=== PATIENT | female | born 1965 | race Caucasian/White ===

== ENCOUNTER 2023-07-24 16:58 | Outpatient (RCR) | payer BC, SELFPAY | END 2023-07-24 23:59 | disposition home or self-care (01) | LOC: ROT 16:58 | PROVIDERS: ATTENDING PHYSICIAN Orthopaedic Surgery Hand Surgery; FAMILY PHYSICIAN Family Medicine | DX: M18.11 Unilateral primary osteoarthritis of first carpometacarpal joint, right hand (principal) | CPT/HCPCS: 97010; 97110; 97140; 97166; 97535 ==

== ENCOUNTER 2023-09-03 09:04 | Outpatient (RCR) | payer BC, SELFPAY | END 2023-09-03 23:59 | disposition home or self-care (01) | LOC: ROT 09:04 | PROVIDERS: ATTENDING PHYSICIAN Orthopaedic Surgery Hand Surgery; FAMILY PHYSICIAN Family Medicine | DX: Z47.89 Encounter for other orthopedic aftercare (principal); M18.11 Unilateral primary osteoarthritis of first carpometacarpal joint, right hand; Z73.6 Limitation of activities due to disability | CPT/HCPCS: 97010; 97018; 97022; 97110; 97140 ==

== ENCOUNTER 2023-09-09 01:27 | Emergency (ER) | payer BC, SELFPAY ==
[2023-09-09] VITALS (8 sets, daily range): BP systolic 93–120; BP diastolic 66–80; PULSE 69–84
[2023-09-09 01:47] LABS: Glucose - Point of Care 124 mg/dl (70-99)
[2023-09-09] MEDS: NSS 1000 IV (02:51)
--- NOTE | 2023-09-09 02:51 | ED.GENMED ---
Addendum entered and electronically signed by PHYLLIS Booker 09/12/23 08:40:
Patient's urine is positive for E. coli I reviewed all sensitivities will send in Keflex 5 mg twice a day patient's pharmacy I spoke with patient home she is feeling well denies any UTI symptoms no nausea vomiting fever pain. Discussed close
outpatient follow-up family doctor
Original Note:
History of Present Illness
General
Chief Complaint: Dizziness
Source: patient
Exam Limitations: none
Time Seen by Provider: 09/09/23 02:26
Travel History
Have you had any contact with someone who has COVID-19?: No
Do you have any symptoms of coronavirus? Fever > 100 degrees, chills, cough, shortness of breath, sore throat, loss of taste or smell, muscle aches, or headache?: No
History of Present Illness
History of Present Illness:
This is a 58 year old female that comes in with c/o dizziness. Staes that yesterday at 3am she awoke and felt woozy and disoriented. States that when she was laying down she felt dizzy like the room was spinniing. States that she had stuffed to do
on Sunday so she pushed through. States that she was at [employer] and she bent over and when she stood back up she was dizzy. States that she felt like today her coordination was off and she kept dropping things. States that she also felt like she had
slurred speech but her felt that this was normal. States that at around 2pm on Sunday she felt better. Then at 3:30pm she felt like her eyes were pink. States that she has had fowl smelling for the past week. States that she also has a
headache on the right sided. Denies any fever, chills, chest pain, SOB, abd pain, nausea, vomiting, diarrhea, urinary burning.
Past History
Past History
ED Past Medical History: Asthma, GERD, Hypercholesterolemia, NIDDM, Psychiatric (Anxiety, Depression) and Other (Bowel polyps pre CA, Hiatal hernia, Osteoarthritis. Migraines, PNA, Sleep apnea, Narrow angle Glaucoma, Anemia, Lyme disease, Vertigo)
ED Past Surgical History: Cholecystectomy, , Gynecological (Tubel), Orthopedic (Bunionectomy, Right and left thumb surgery), Tonsilectomy and Urological (Bladder sling)
Social History
Tobacco: Non-smoker
Alcohol: Occasional
Personal:
Living: with family
Review of Systems
Review of Systems
All Other Systems: ROS reviewed and negative except as documented in HPI and ROS
Constitutional: Reports no symptoms; Denies fever or chills
EENT: Reports no symptoms
Respiratory: Reports no symptoms; Denies cough or trouble breathing
Cardiac: Reports no symptoms; Denies chest pain
ABD/GI: Reports no symptoms; Denies abdominal pain, nausea, vomiting or diarrhea
: Reports other (Fowl smelling urine); Denies dysuria, frequency or urgency
Musculoskeletal: Reports no symptoms
Skin: Reports no symptoms
Neurological: Reports dizzy and headache
Psychiatric: Reports no symptoms
Phy Exam
General Physical Exam
General Presentation: well appearing (Upon entering the room patient was walking out of the bathroom. Stable on her feet) and no apparent distress
General age: appears stated age
General Skin: warm and dry
General Habitus: normal
General Mental: alert
General Hydration: appears well hydrated
ENT Exam
ENT Exam: TM's normal, pharynx normal and neck supple
Eye Exam
Eye Exam: EOMI
Cardiovascular Exam
Cardiovascular Exam: regular rate/rhythm, no edema, no murmur and normal peripheral pulses
Pulmonary Exam
Pulmonary Exam: lungs clear, no respiratory distress, no rales, chest non tender, no crackles, no rhonchi, no wheezing and no cough
Gastrointestinal Exam
Gastrointestinal Exam: normal bowel sounds, non tender, soft, no organomegaly, no pulsatile mass and non distended
Musculoskeletal Exam
Musculoskeletal Exam: full ROM and no edema
Skin Exam
Skin Exam: normal color, warm/dry, no rash and no petechia
Psychiatric Exam
Psychiatric Exam: normal mood/affect
Course
Orders/Labs/Results
Orders:
Orders
09/09/23 02:03
EKG [Electrocardiogram (*1)] Urgent
Reason for Study: Vertigo / Dizzy
09/09/23 02:04
EKG- Treatment ONCE
09/09/23 02:23
CBC/With Diff [Complete Blood Count/With Diff] Urgent
CMP [Comprehensive Metabolic Panel] Urgent
09/09/23 02:31
Urinalysis Reflex To Culture Urgent
Date Specimen was Collected: 09/09/23
Time Specimen was Collected: 02:30
Urine Microscopic Reflex Cult Urgent
Urine Culture Urgent
PROSPER Source: U
Specimen Description:
Date Specimen was Collected: 09/09/23
Time Specimen was Collected: 02:30
09/09/23 02:48
CT Head W/o Iv Contrast Urgent
Comment:
Reason For Exam: Dizziness, headache
0.9% Sodium Chloride 1000 ml [Nss] 1,000 ml IV BOLUS
Abnormal Lab Results
09/09/23 09/09/23 09/09/23
01:45 02:23 02:31
RBC 3.75 L 10^6/uL
(4.20-5.40)
Hgb 11.9 L g/dL
(12.0-16.0)
Hct 31.9 L %
(37.0-47.0)
MCH 31.7 H pg
(27.0-31.0)
MCHC 37.3 H g/dL
(33.0-37.0)
Absolute Lymphs (auto) 3.7 H 10^3/uL
(1.2-3.4)
Absolute Monos (auto) 0.7 H 10^3/uL
(0.1-0.6)
Neutrophils % 38.8 L %
(42.2-75.2)
BUN 22 H mg/dl
(7-17)
Glucose 127 H mg/dl
(70-99)
Leukocyte Esterase Rfl 2+ A
(Negative)
Urine Bacteria (Reflex) Moderate A
(Negative)
POC Glucose 124 H mg/dl
(70-99)
09/09/23 02:23
09/09/23 02:23
H/H slightly low. dehydration. glucose nonfasting. Urine negative for infection. Urine culture is pending.
Vital Signs
Initial and Last Documented VS:
Initial Vital Signs
Temp Pulse Resp BP Pulse Ox
97.9 F 80 18 120/80 98
09/09/23 01:29 09/09/23 01:29 09/09/23 01:29 09/09/23 01:29 09/09/23 01:29
Last Documented Vital Signs
Temp Pulse Resp BP Pulse Ox
97.9 F 75 19 116/66 98
09/09/23 01:29 09/09/23 01:45 09/09/23 01:45 09/09/23 01:44 09/09/23 01:45
MDM/Problems Addressed
Differential Diagnosis Includes:
Vertigo, Dehydration. UTI
MDM/Problems Addressed:
This is a 58 year old female that comes in with c/o dizziness and a headache. States thats he got up yesterday at 3am and felt woozy. States that she had thing to do on Sunday so she pushed through. States that she was dizzy when she was at [employer]
and she was dropping thing during the day. States that her urine has had a fowl smell all week and then by 2pm she felt better. States that she also had a right sided headache.
Will check labs. Urine, CT head, give IV fluids.
Back into see patient. Explained that her blood work shows dehdyration. Her CT of the head is normal. Her urine is negative for infection but a culture is pending and if this would be positive patient would be called. Patient state that she just
gets nervous as her Mother had a stroke and her dad had TIA's. Patient to follow up with the family doctor. Patient was able to walk around the nursing station without any difficulty. Will discharge home.
Chronic conditions affecting care:
Vertigo,
Acute Exacerbation and/or Progression of Chronic Illness:
Vertigo
*Radiology
Radiology exam reviewed: radiology read reviewed (CT head- [place]- No hemorrhage or other acute intracranial abnormality. )
*Pulse Oximetry
Patient hypoxic: no
*EKG
Interpreted by ED Provider?: Yes
Heart Rate: 68
Rate: normal
Rhythm: sinus
[place]: left axis deviation
Interval: normal interval
QRS Pattern: low voltage
Ischemia: T-wave inversion (V1, V3, )
*Critical Care Note
Total Time (30-74mins, 75-104mins- exclusive of procedures): Not Applicable
ED Attending Note
-
Portions of this chart may have been created with voice recognition software.� Occasional wrong word or��sound alike� substitutions may have occurred due to the inherent limitations of voice recognition software.
Discharge Plan
Departure
Patient Disposition: Home (Routine Discharge)
Date of Disposition: 09/09/23
Time of Disposition: 03:41
Patient with high blood pressure during this ER visit?: No
Condition: Good
Covid-19: Not Applicable
Discharge Problem:
Dizziness, Dehydration
Instructions: Dehydration, Adult (DC), Dizziness
Prescriptions:
No Action
citalopram 20 mg Tablet
20 mg PO DAILY
rosuvastatin 5 mg Tablet
5 mg PO DAILY
glimepiride 1 mg Tablet
1 mg PO DAILY
nabumetone 750 mg Tablet
750 mg PO BID
cholecalciferol (vitamin D3) [Vitamin D3] 25 mcg (1,000 unit) Capsule
25 mcg PO DAILY
magnesium 200 mg Tablet
200 mg PO DAILY
Natural Tears (PF) 0.1-0.3 % Dropperette
1 drp OPHTHALMIC (EYE) PRN PRN (Reason: Dry Eyes)
Mounjaro 2.5 mg/0.5 mL Pen Injector
2.5 mg SC MO
Referrals:
Alfred Call MD [Family Provider] - Follow up in 2-3 days
Activity Restrictions/Additional Instructions:
As discussed, your CT of the head is normal and your blood work shows that you are dehydrated. Please increase your water intake to 8-8oz glasses daily. Follow up with the family doctor for recheck. There is a urine culture pending. If this would
come back positive you will be called and start on an antibiotics. IF YOU HAVE INCREASED DIZZINESS, OR YOU HAVE ANY OTHER CONCERNS PLEASE RETURN TO THE EMERGENCY ROOM.
Interventions
Interventions:
*Risk Screen - Suicide Last Done: 09/09/23 01:29
*Neglect/Abuse Screening Last Done: 09/09/23 01:29
ED- Neurological Assessment Last Done: 09/09/23 01:51
[2023-09-09 02:53] LABS: Urine Albumin Negative (Neg - Trace); Urine Bilirubin Negative (Negative); Urine Character Clear (Clear); Urine Color Yellow; Urine Glucose Negative (Negative); Urine Ketone Negative (Negative); Urine Leukocyte 2+ (Negative); Urine Nitrite Negative (Negative); Urine Occult Blood Negative (Negative); Urine Urobilinogen Negative (Neg - 1+)
[2023-09-09 02:56] LABS: % Basophils 0.8 % (0-2); % Eosinophils 3.5 % (0-6); % Immature Granulocytes 0.3 % (0-0.5); % Lymphocytes 47.7 % (20.5-51.1); % Monocytes 8.9 % (1.7-9.3); % Neutrophils 38.8 % (42.2-75.2); Absolute Basophils 0.1 10^3/uL (0-0.2); Absolute Eosinophils 0.3 10^3/uL (0-0.7); Absolute Lymphocytes 3.7 10^3/uL (1.2-3.4); Absolute Monocytes 0.7 10^3/uL (0.1-0.6); Hematocrit 31.9 % (37.0-47.0); Hemoglobin 11.9 g/dL (12.0-16.0); Mean Corp Hgb Conc. 37.3 g/dL (33.0-37.0); Mean Corpuscular Hgb 31.7 pg (27.0-31.0); Mean Corpuscular Volume 85.1 fL (81.0-99.0); Mean Platelet Volume 9.4 fL (7.4-10.4); Nucleated Red Blood Cells % 0 %; Platelet Count 140 10^3/uL (130-400); Red Blood Cell Count 3.75 10^6/uL (4.20-5.40); Red Cell Dist. Width 11.9 % (11.5-14.5); White Blood Cell Count 7.8 10^3/uL (4.8-10.8)
[2023-09-09 03:08] LABS: ALT (SGPT) 30 U/L (0-35); AST (SGOT) 26 U/L (14-36); Albumin 4.2 g/dl (3.5-5.0); Alkaline Phosphatase 66 U/L (38-126); Blood Urea Nitrogen 22 mg/dl (7-17); Calcium 9.5 mg/dl (8.4-10.2); Carbon Dioxide 22 mmol/L (22-30); Chloride 105 mmol/L (98-107); Glucose 127 mg/dl (70-99); Potassium 3.5 mmol/L (3.5-5.1); Sodium 140 mmol/L (135-145); Total Bilirubin 0.5 mg/dl (0.2-1.3); Total Protein 6.7 g/dl (6.3-8.2); eGFR > 60.00
[2023-09-09 03:09] LABS: Urine Bacteria Moderate (Negative); Urine Red Blood Cell 0-2 /HPF (0-2)
== END 2023-09-09 04:02 | disposition home or self-care (01) ==
LOC: EMR 01:27
PROVIDERS: Clinical Nurse Specialist Family Health; EMERGENCY PHYSICIAN Emergency Medicine; FAMILY PHYSICIAN Family Medicine
DX: R42 Dizziness and giddiness (principal); E86.0 Dehydration; R47.81 Slurred speech; J45.909 Unspecified asthma, uncomplicated; K21.9 Gastro-esophageal reflux disease without esophagitis; E78.00 Pure hypercholesterolemia, unspecified; E11.9 Type 2 diabetes mellitus without complications; F41.8 Other specified anxiety disorders; G47.30 Sleep apnea, unspecified; M19.90 Unspecified osteoarthritis, unspecified site; Z90.49 Acquired absence of other specified parts of digestive tract
CPT/HCPCS: 99284; 70450; 80053; 81003; 81015; 82962; 85025; 87077; 87086; 87186; 93005

== ENCOUNTER 2023-09-25 17:17 | Outpatient (RCR) | payer BC, SELFPAY | END 2023-09-25 23:59 | disposition home or self-care (01) | LOC: ROT 17:17 | PROVIDERS: ATTENDING PHYSICIAN Orthopaedic Surgery Hand Surgery; FAMILY PHYSICIAN Family Medicine | DX: Z47.89 Encounter for other orthopedic aftercare (principal); M18.11 Unilateral primary osteoarthritis of first carpometacarpal joint, right hand; Z73.6 Limitation of activities due to disability | CPT/HCPCS: 97018; 97110; 97140 ==

== ENCOUNTER → 2023-10-03 10:05 | Outpatient (REF) | payer BC, SELFPAY ==
[2023-10-03 11:28] LABS: ALT (SGPT) 39 U/L (0-35); AST (SGOT) 29 U/L (14-36); Albumin 4.8 g/dl (3.5-5.0); Alkaline Phosphatase 74 U/L (38-126); Blood Urea Nitrogen 19 mg/dl (7-17); Calcium 10.2 mg/dl (8.4-10.2); Carbon Dioxide 22 mmol/L (22-30); Chloride 106 mmol/L (98-107); Glucose 162 mg/dl (70-99); HDL Cholesterol 49 mg/dl; LDL Cholesterol, Calculated 60 mg/dl; Potassium 4.5 mmol/L (3.5-5.1); Sodium 140 mmol/L (135-145); Total Bilirubin 0.8 mg/dl (0.2-1.3); Total Cholesterol 160 mg/dl (50-199); Total Protein 7.7 g/dl (6.3-8.2); Triglyceride 256 mg/dl (10-149); Very Low Density Lipoprotein 51 mg/dl (0-30); eGFR > 60.00
[2023-10-03 12:16] LABS: Glycohemoglobin (HgbA1c) 6.7 % (4.0-5.6)
== END ==
LOC: REG 10:05
PROVIDERS: ATTENDING PHYSICIAN Internal Medicine Endocrinology, Diabetes & Metabolism; FAMILY PHYSICIAN Family Medicine
DX: E11.9 Type 2 diabetes mellitus without complications (principal)
CPT/HCPCS: 36415; 80053; 80061; 83036

== ENCOUNTER → 2023-11-06 19:59 | Outpatient (REF) | payer BC, SELFPAY | LOC: WDC 19:59 | PROVIDERS: ATTENDING PHYSICIAN Family Medicine | DX: Z12.31 Encounter for screening mammogram for malignant neoplasm of breast (principal) | CPT/HCPCS: 77063; 77067 ==

== ENCOUNTER 2023-11-19 09:10 | Outpatient (RCR) | payer BC, SELFPAY | END 2023-11-19 23:59 | disposition home or self-care (01) | LOC: ROT 09:10 | PROVIDERS: ATTENDING PHYSICIAN Orthopaedic Surgery Hand Surgery; FAMILY PHYSICIAN Family Medicine | DX: M18.11 Unilateral primary osteoarthritis of first carpometacarpal joint, right hand (principal); Z73.6 Limitation of activities due to disability | CPT/HCPCS: 97018; 97110; 97140; 97535 ==

== ENCOUNTER → 2023-11-19 10:11 | Outpatient (REF) | payer BC, SELFPAY ==
[2023-11-19 11:47] LABS: % Eosinophils 3.6 % (0-6); % Immature Granulocytes 0.4 % (0-0.5); % Lymphocytes 41.3 % (20.5-51.1); % Monocytes 8.3 % (1.7-9.3); % Neutrophils 45.4 % (42.2-75.2); Absolute Basophils 0.1 10^3/uL (0-0.2); Absolute Eosinophils 0.3 10^3/uL (0-0.7); Absolute Lymphocytes 2.9 10^3/uL (1.2-3.4); Absolute Monocytes 0.6 10^3/uL (0.1-0.6); Absolute Neutrophils 3.1 10^3/uL (1.4-6.5); Hematocrit 36.9 % (37.0-47.0); Hemoglobin 12.7 g/dL (12.0-16.0); Mean Corp Hgb Conc. 34.4 g/dL (33.0-37.0); Mean Corpuscular Hgb 31.1 pg (27.0-31.0); Mean Corpuscular Volume 90.2 fL (81.0-99.0); Mean Platelet Volume 9.8 fL (7.4-10.4); Nucleated Red Blood Cells % 0 %; Platelet Count 148 10^3/uL (130-400); Red Blood Cell Count 4.09 10^6/uL (4.20-5.40); Red Cell Dist. Width 11.7 % (11.5-14.5); White Blood Cell Count 6.9 10^3/uL (4.8-10.8)
[2023-11-19 12:34] LABS: Erythrocyte Sed Rate 12 mm/hour (0-20)
[2023-11-19 12:57] LABS: C-Reactive Protein < 5.00 mg/L (0.0-10.00)
[2023-11-19 13:13] LABS: Creatine Phosphokinase 81 U/L (30-135)
[2023-11-19 13:20] LABS: Free T4 1.29 ng/dl (0.78-2.19); Vitamin D, 25-OH*** 52.6 ng/mL (30-80)
[2023-11-19 13:34] LABS: TSH 2.13 uIU/ml (0.47-4.68)
[2023-11-19 13:53] LABS: Vitamin B12 541 pg/ml (239-931)
[2023-11-22 02:44] LABS: ANA, IgG Reflex to HEp-2 None Detected (None Detected)
[2023-11-22 02:51] LABS: CCP Antibody IgG/IgA 11 Units (0-19)
== END ==
LOC: REG 10:11
PROVIDERS: ATTENDING PHYSICIAN Internal Medicine Rheumatology; FAMILY PHYSICIAN Family Medicine
DX: E07.9 Disorder of thyroid, unspecified (principal); E53.8 Deficiency of other specified B group vitamins; E55.9 Vitamin D deficiency, unspecified; M25.50 Pain in unspecified joint
CPT/HCPCS: 36415; 73030; 73100; 73130; 73523; 73600; 82306; 82550; 82607; 84439; 84443; 85025; 85652; 86038; 86140; 86200; 86430; 86617

== ENCOUNTER → 2024-01-01 11:33 | Outpatient (REF) | payer BC, SELFPAY | LOC: RAD 11:33 | PROVIDERS: ATTENDING PHYSICIAN Family Medicine | DX: Z86.69 Personal history of other diseases of the nervous system and sense organs (principal); G45.9 Transient cerebral ischemic attack, unspecified | CPT/HCPCS: 93880 ==

== ENCOUNTER → 2024-01-02 09:46 | Outpatient (REF) | payer BC, SELFPAY | LOC: PAVMRI 09:46 | PROVIDERS: ATTENDING PHYSICIAN Family Medicine | DX: Z86.69 Personal history of other diseases of the nervous system and sense organs (principal); G45.9 Transient cerebral ischemic attack, unspecified | CPT/HCPCS: 70553; A9575 ==

== ENCOUNTER 2024-02-16 16:05 | Emergency (ER) | payer OTHER, SELFPAY ==
[2024-02-16 16:07] VITALS: BP 105/77
[2024-02-16 16:57] VITALS: BMI 30.4
[2024-02-16 17:41] LABS: Glucose - Point of Care 169 mg/dl (70-99)
[2024-02-16 18:10] LABS: COVID-19 Antigen Negative (Negative)
--- NOTE | 2024-02-16 18:57 | ED.GENMED ---
History of Present Illness
<Li Rivera MD, Resident - Last Filed: 02/16/24 21:46>
General
Chief Complaint: Dizziness
Source: patient
Time Seen by Provider: 02/16/24 17:37
History of Present Illness
History of Present Illness:
58-year-old female, MsAnibal Anderson with past medical history significant for diabetes, hyperlipidemia, osteoarthritis presented to the ER reporting dizziness, neck pain, heaviness in the legs, fatigue, feeling mentally foggy. She reports all
the symptoms started 3 days ago. Patient reports having dizziness at the time she gets up from bed, or stands up from sitting position. No associated headaches, nausea/vomiting, tingling/numbness/extremity weakness. Patient reports she is very
fatigued, had some subjective fevers, chills, malaise, and diarrhea since yesterday. Patient mentioned she had 2 episodes of diarrhea�'rice water stools' patient also mentioned that she has been having some balance issues from the past couple of
months, was evaluated by her primary care with an MRI.
Past History
<Li Rivera MD, Resident - Last Filed: 02/16/24 21:46>
Past History
ED Past Medical History: Asthma, GERD, Hypercholesterolemia, NIDDM, Psychiatric (Anxiety, Depression) and Other (Bowel polyps pre CA, Hiatal hernia, Osteoarthritis. Migraines, PNA, Sleep apnea, Narrow angle Glaucoma, Anemia, Lyme disease, Vertigo)
ED Past Surgical History: Cholecystectomy, , Gynecological (Tubel), Orthopedic (Bunionectomy, Right and left thumb surgery), Tonsilectomy and Urological (Bladder sling)
Social History
Tobacco: Non-smoker
Alcohol: Occasional
Drug: None
Personal:
Living: with family
Review of Systems
<Li Rivera MD, Resident - Last Filed: 02/16/24 21:46>
Review of Systems
All Other Systems: ROS reviewed and negative except as documented in HPI and ROS
Phy Exam
<Li Rivera MD, Resident - Last Filed: 02/16/24 21:46>
Physical Exam
Physical Exam:
GEN: Well appearing, NAD, WDWN
Eyes: PERRLA, EOMs intact, no scleral icterus
HENT: NCAT, oral mucosa moist, no JVD, no cervical adenopathy.
Lungs: CTAB, no wheezes, rales, rhonchi, normal chest wall excursion
Cardiac: RRR, S1-S2+, no peripheral edema. Radial pulses 2+ bilat
Abdomen: S, NT, ND, NABS, no masses or hepatosplenomegaly
Neuro: AO x 3, no focal deficits to BUE/BLE, normal sensation throughout
Skin: No rashes, petechiae. Normal color, no pallor or jaundice.
Psych: Calm, cooperative, proper hygiene
Course
<Li Rivera MD, Resident - Last Filed: 02/16/24 21:46>
Orders/Labs/Results
Orders:
Orders
02/16/24
Complete Blood Count/With Diff Urgent
Comprehensive Metabolic Panel Urgent
02/16/24 16:13
Electrocardiogram (*1) Urgent
Reason for Study: Vertigo / Dizzy
EKG- Treatment ONCE
02/16/24 17:46
COVID-19 Antigen Urgent
Source: Nasal Swab
02/16/24 19:19
Acetaminophen [Tylenol] 650 mg PO NOW STA
02/16/24 19:41
UA Reflex to Culture [Urinalysis Reflex To Culture] Urgent
Date Specimen was Collected: 02/16/24
Time Specimen was Collected: 19:40
02/16/24 19:56
Orthostatic VS- Treatment ONCE
0.9% Sodium Chloride 1000 ml [Nss] 1,000 ml IV BOLUS
Abnormal Lab Results
02/16/24 02/16/24
17:37 Unknown
RBC 4.18 L 10^6/uL
(4.20-5.40)
Hct 35.8 L %
(37.0-47.0)
MCH 31.3 H pg
(27.0-31.0)
Plt Count 126 L 10^3/uL
(130-400)
Absolute Lymphs (auto) 1.0 L 10^3/uL
(1.2-3.4)
Neutrophils % 77.4 H %
(42.2-75.2)
Lymphocytes % 12.9 L %
(20.5-51.1)
Carbon Dioxide 20 L mmol/L
(22-30)
BUN 20 H mg/dl
(7-17)
Glucose 156 H mg/dl
(70-99)
POC Glucose 169 H mg/dl
(70-99)
02/16/24 Unknown
02/16/24 Unknown
Vital Signs
Initial and Last Documented VS:
Initial Vital Signs
Temp Pulse Resp BP Pulse Ox
99.8 F 107 18 105/77 97
02/16/24 16:07 02/16/24 16:07 02/16/24 16:07 02/16/24 16:07 02/16/24 16:07
Last Documented Vital Signs
Temp Pulse Resp BP Pulse Ox
99.8 F 99 18 112/76 96
02/16/24 16:07 02/16/24 21:16 02/16/24 21:16 02/16/24 21:16 02/16/24 21:16
Nicolelt;Richard Glez, DO - Last Filed: 02/17/24 01:48>
Orders/Labs/Results
Orders:
Orders
02/16/24
Complete Blood Count/With Diff Urgent
Comprehensive Metabolic Panel Urgent
02/16/24 16:13
Electrocardiogram (*1) Urgent
Reason for Study: Vertigo / Dizzy
EKG- Treatment ONCE
02/16/24 17:46
COVID-19 Antigen Urgent
Source: Nasal Swab
02/16/24 19:19
Acetaminophen [Tylenol] 650 mg PO NOW STA
02/16/24 19:41
UA Reflex to Culture [Urinalysis Reflex To Culture] Urgent
Date Specimen was Collected: 02/16/24
Time Specimen was Collected: 19:40
02/16/24 19:56
Orthostatic VS- Treatment ONCE
0.9% Sodium Chloride 1000 ml [Nss] 1,000 ml IV BOLUS
Abnormal Lab Results
02/16/24 02/16/24
17:37 Unknown
RBC 4.18 L 10^6/uL
(4.20-5.40)
Hct 35.8 L %
(37.0-47.0)
MCH 31.3 H pg
(27.0-31.0)
Plt Count 126 L 10^3/uL
(130-400)
Absolute Lymphs (auto) 1.0 L 10^3/uL
(1.2-3.4)
Neutrophils % 77.4 H %
(42.2-75.2)
Lymphocytes % 12.9 L %
(20.5-51.1)
Carbon Dioxide 20 L mmol/L
(22-30)
BUN 20 H mg/dl
(7-17)
Glucose 156 H mg/dl
(70-99)
POC Glucose 169 H mg/dl
(70-99)
02/16/24 Unknown
02/16/24 Unknown
Vital Signs
Initial and Last Documented VS:
Initial Vital Signs
Temp Pulse Resp BP Pulse Ox
99.8 F 107 18 105/77 97
02/16/24 16:07 02/16/24 16:07 02/16/24 16:07 02/16/24 16:07 02/16/24 16:07
Last Documented Vital Signs
Temp Pulse Resp BP Pulse Ox
99.8 F 99 18 112/76 96
02/16/24 16:07 02/16/24 21:16 02/16/24 21:16 02/16/24 21:16 02/16/24 21:16
<Li Rivera MD, Resident - Last Filed: 02/16/24 21:46>
MDM/Problems Addressed
Differential Diagnosis Includes:
Electrolyte abnormalities�hyperglycemia/hypoglycemia versus orthostatic hypotension versus arrhythmias
Dehydration from gastroenteritis
MDM/Problems Addressed:
Patient is afebrile on presentation. Mildly tachycardic at 107. BUN 20, blood glucose 156.
Check orthostatic vitals.
COVID-negative
Urinalysis unremarkable
EKG�sinus tachycardia
Started on IV fluids
Patient has improved clinically.
Stable to be discharged home, advised to follow-up with the primary care within a week.
Chronic conditions affecting care: DM and Other
<Li Rivera MD, Resident - Last Filed: 02/16/24 21:46>
*Critical Care Note
Total Time (30-74mins, 75-104mins- exclusive of procedures): Not Applicable
<Richard Glez, DO - Last Filed: 02/17/24 01:48>
*EKG
Interpreted by ED Provider?: Yes
EKG Intrepretation Date: 02/17/24
EKG Intrepretation Time: 16:17
Interpretation: abnormal
Comparison EKG: changes noted
Heart Rate: 101
Rate: tachycardiac
Rhythm: sinus tachycardia
[place]: normal axis
Interval: normal interval
QRS Pattern: normal QRS
Ischemia: no ischemia
*[employer] Interpretation
Rate: normal
Interpretation: normal
Heart Rate: 100
Rhythm: sinus
ED Attending Note
<Li Rivera MD, Resident - Last Filed: 02/16/24 21:46>
-
Portions of this chart may have been created with voice recognition software.� Occasional wrong word or��sound alike� substitutions may have occurred due to the inherent limitations of voice recognition software.
<Richard Glez, - Last Filed: 02/17/24 01:48>
ED Attending Note
Patient seen and examined by attending physician: Yes
I performed a history and physical exam of patient and discussed management with resident, I reviewed resident's note and agree with documented findings and plan of care.: Yes
ED Attending Note:
I reviewed and agree with history and treatment plan by Dr. Li Rivera.
My exam reveals 58-year-old female in no acute distress, soft abdomen. No acute findings on labs. Patient stable for discharge.
Discharge Plan
Departure
Patient Disposition: Home (Routine Discharge)
Date of Disposition: 02/16/24
Time of Disposition: 21:42
Patient with high blood pressure during this ER visit?: No
Condition: Good
Discharge Problem:
Fatigue, Dizziness
Instructions: Dizziness, Nonvertigo, (DC)
Prescriptions:
No Action
citalopram 20 mg Tablet
20 mg PO DAILY
rosuvastatin 5 mg Tablet
5 mg PO DAILY
glimepiride 1 mg Tablet
1 mg PO DAILY
nabumetone 750 mg Tablet
750 mg PO BID
cholecalciferol (vitamin D3) [Vitamin D3] 25 mcg (1,000 unit) Capsule
25 mcg PO DAILY
magnesium 200 mg Tablet
200 mg PO DAILY
Natural Tears (PF) 0.1-0.3 % Dropperette
1 drp OPHTHALMIC (EYE) PRN PRN (Reason: Dry Eyes)
Mounjaro 2.5 mg/0.5 mL Pen Injector
2.5 mg SC MO
cephalexin 500 mg capsule
500 mg PO BID 7 Days Qty: 14 0RF
Referrals:
Alfred Call MD [Family Provider] -
Activity Restrictions/Additional Instructions:
Follow-up with the primary care within a week.
Interventions
Interventions:
*Risk Screen - Suicide Last Done: 02/16/24 16:07
*General Assessment Last Done: 02/16/24 16:07
*Neglect/Abuse Screening Last Done: 02/16/24 16:07
ED- Fall Risk Assessment Last Done: 02/16/24 17:00
*ED COVID-19 Vaccine History Last Done: 02/16/24 17:03
*Nursing Disposition Last Done: 02/16/24 22:52
ED- Neurological Assessment Last Done: 02/16/24 17:00
ED- Cardiac Assessment Last Done: 02/16/24 17:00
Discharge Date and Time
Discharge Date/Time: 02/16/24 22:53
Print Language: [id number]
[2024-02-16 19:00] VITALS: BP 104/69
[2024-02-16 19:08] LABS: % Basophils 0.6 % (0-2); % Eosinophils 1.1 % (0-6); % Immature Granulocytes 0.5 % (0-0.5); % Lymphocytes 12.9 % (20.5-51.1); % Monocytes 7.5 % (1.7-9.3); % Neutrophils 77.4 % (42.2-75.2); Absolute Basophils 0.1 10^3/uL (0-0.2); Absolute Eosinophils 0.1 10^3/uL (0-0.7); Absolute Monocytes 0.6 10^3/uL (0.1-0.6); Absolute Neutrophils 6.1 10^3/uL (1.4-6.5); Hematocrit 35.8 % (37.0-47.0); Hemoglobin 13.1 g/dL (12.0-16.0); Mean Corp Hgb Conc. 36.6 g/dL (33.0-37.0); Mean Corpuscular Hgb 31.3 pg (27.0-31.0); Mean Corpuscular Volume 85.6 fL (81.0-99.0); Mean Platelet Volume 9.3 fL (7.4-10.4); Nucleated Red Blood Cells % 0 %; Platelet Count 126 10^3/uL (130-400); Red Blood Cell Count 4.18 10^6/uL (4.20-5.40); Red Cell Dist. Width 11.7 % (11.5-14.5); White Blood Cell Count 7.9 10^3/uL (4.8-10.8)
[2024-02-16 19:29] LABS: ALT (SGPT) 32 U/L (0-35); AST (SGOT) 31 U/L (14-36); Albumin 4.7 g/dl (3.5-5.0); Alkaline Phosphatase 69 U/L (38-126); Blood Urea Nitrogen 20 mg/dl (7-17); Calcium 10.1 mg/dl (8.4-10.2); Carbon Dioxide 20 mmol/L (22-30); Chloride 105 mmol/L (98-107); Estimated Creatinine Clearance 81 ml/min; Glucose 156 mg/dl (70-99); Potassium 4.3 mmol/L (3.5-5.1); Sodium 137 mmol/L (135-145); Total Bilirubin 0.5 mg/dl (0.2-1.3); Total Protein 7.4 g/dl (6.3-8.2); eGFR > 60.00
[2024-02-16] MEDS: TYLENOL 650 MG PO (19:36)
[2024-02-16 19:49] LABS: Urine Albumin Negative (Neg - Trace); Urine Bilirubin Negative (Negative); Urine Character Clear (Clear); Urine Color Yellow; Urine Glucose Negative (Negative); Urine Ketone Negative (Negative); Urine Leukocyte Negative (Negative); Urine Nitrite Negative (Negative); Urine Occult Blood Negative (Negative); Urine Urobilinogen Negative (Neg - 1+)
[2024-02-16 19:56] VITALS: BP 101/69; BP 121/65; BP 121/79; PULSE 91; PULSE 93; PULSE 95
[2024-02-16 20:00] VITALS: BP 129/83
[2024-02-16] MEDS: NSS 1000 IV (20:07)
[2024-02-16 21:16] VITALS: BP 112/76
== END 2024-02-16 22:53 | disposition home or self-care (01) ==
LOC: EMR 16:05
PROVIDERS: Student in an Organized Health Care Education/Training Program; EMERGENCY PHYSICIAN Emergency Medicine; FAMILY PHYSICIAN Family Medicine
DX: R42 Dizziness and giddiness (principal); E78.00 Pure hypercholesterolemia, unspecified; E11.9 Type 2 diabetes mellitus without complications; F32.A Depression, unspecified; G47.30 Sleep apnea, unspecified; J45.909 Unspecified asthma, uncomplicated; M19.90 Unspecified osteoarthritis, unspecified site; Z90.49 Acquired absence of other specified parts of digestive tract
CPT/HCPCS: 99283; 80053; 81003; 82962; 85025; 87811; 93005

== ENCOUNTER → 2024-04-03 09:23 | Outpatient (REF) | payer OTHER, SELFPAY ==
[2024-04-03 10:45] LABS: Glycohemoglobin (HgbA1c) 6.2 % (4.0-5.6)
[2024-04-03 10:54] LABS: ALT (SGPT) 40 U/L (0-35); AST (SGOT) 33 U/L (14-36); Albumin 5.1 g/dl (3.5-5.0); Alkaline Phosphatase 65 U/L (38-126); Blood Urea Nitrogen 23 mg/dl (7-17); Calcium 10.6 mg/dl (8.4-10.2); Carbon Dioxide 23 mmol/L (22-30); Chloride 104 mmol/L (98-107); Glucose 138 mg/dl (70-99); HDL Cholesterol 56 mg/dl; LDL Cholesterol, Calculated 89 mg/dl; Potassium 4.4 mmol/L (3.5-5.1); Sodium 144 mmol/L (135-145); Total Bilirubin 0.8 mg/dl (0.2-1.3); Total Cholesterol 185 mg/dl (50-199); Total Protein 7.8 g/dl (6.3-8.2); Triglyceride 201 mg/dl (10-149); Very Low Density Lipoprotein 40 mg/dl (0-30); eGFR > 60.00
== END ==
LOC: REG 09:23
PROVIDERS: ATTENDING PHYSICIAN Student in an Organized Health Care Education/Training Program; FAMILY PHYSICIAN Family Medicine; REFERRING PHYSICIAN Internal Medicine Endocrinology, Diabetes & Metabolism
DX: A69.20 Lyme disease, unspecified (principal); E11.9 Type 2 diabetes mellitus without complications
CPT/HCPCS: 36415; 80053; 80061; 83036; 87015; 87207

== ENCOUNTER → 2024-05-21 06:15 | Day surgery (SDC) | payer OTHER, SELFPAY ==
[2024-05-21 07:21] LABS: Glucose - Point of Care 152 mg/dl (70-99)
== END ==
LOC: GI 06:15
PROVIDERS: ATTENDING PHYSICIAN Internal Medicine; FAMILY PHYSICIAN Family Medicine
DX: Z12.11 Encounter for screening for malignant neoplasm of colon (principal); Z86.0100 Personal history of colon polyps, unspecified; K63.89 Other specified diseases of intestine
CPT/HCPCS: 45380; 88305; 82962

== ENCOUNTER → 2024-06-25 12:38 | Outpatient (REF) | payer OTHER, SELFPAY ==
[2024-06-25 14:14] LABS: Glycohemoglobin (HgbA1c) 6.1 % (4.0-5.6)
== END ==
LOC: REG 12:38
PROVIDERS: ATTENDING PHYSICIAN Internal Medicine Endocrinology, Diabetes & Metabolism; FAMILY PHYSICIAN Family Medicine
DX: E11.9 Type 2 diabetes mellitus without complications (principal)
CPT/HCPCS: 36415; 83036

== ENCOUNTER → 2024-08-28 11:36 | Outpatient (REF) | payer OTHER, SELFPAY ==
[2024-08-28 12:53] LABS: % Eosinophils 3.9 % (0-6); % Immature Granulocytes 0.3 % (0-0.5); % Lymphocytes 39.3 % (20.5-51.1); % Monocytes 7.6 % (1.7-9.3); % Neutrophils 47.9 % (42.2-75.2); Absolute Basophils 0.1 10^3/uL (0-0.2); Absolute Eosinophils 0.3 10^3/uL (0-0.7); Absolute Lymphocytes 2.6 10^3/uL (1.2-3.4); Absolute Monocytes 0.5 10^3/uL (0.1-0.6); Absolute Neutrophils 3.2 10^3/uL (1.4-6.5); Hematocrit 43.5 % (37.0-47.0); Mean Corp Hgb Conc. 34.5 g/dL (33.0-37.0); Mean Corpuscular Hgb 30.8 pg (27.0-31.0); Mean Corpuscular Volume 89.3 fL (81.0-99.0); Mean Platelet Volume 9.6 fL (7.4-10.4); Nucleated Red Blood Cells % 0 %; Platelet Count 198 10^3/uL (130-400); Red Blood Cell Count 4.87 10^6/uL (4.20-5.40); Red Cell Dist. Width 11.9 % (11.5-14.5); White Blood Cell Count 6.7 10^3/uL (4.8-10.8)
[2024-08-28 13:07] LABS: Erythrocyte Sed Rate 1 mm/hour (0-20)
[2024-08-28 13:16] LABS: ALT (SGPT) 34 U/L (0-35); AST (SGOT) 22 U/L (14-36); Albumin 4.9 g/dl (3.5-5.0); Alkaline Phosphatase 61 U/L (38-126); Blood Urea Nitrogen 16 mg/dl (7-17); Calcium 9.8 mg/dl (8.4-10.2); Carbon Dioxide 25 mmol/L (22-30); Chloride 108 mmol/L (98-107); Glucose 132 mg/dl (70-99); Potassium 4.3 mmol/L (3.5-5.1); Sodium 143 mmol/L (135-145); Total Bilirubin 0.6 mg/dl (0.2-1.3); Total Protein 7.9 g/dl (6.3-8.2); eGFR > 60.00
[2024-08-28 13:19] LABS: C-Reactive Protein < 5.00 mg/L (0.0-10.00)
[2024-08-28 18:49] LABS: Hepatitis B Surface Antigen Negative (Negative)
[2024-08-28 19:07] LABS: Hepatitis B Core Ab, Total Negative (Negative); Hepatitis C Antibody Negative (Negative)
[2024-08-30 12:25] LABS: Quantiferon Mitogen minus NIL 9.95 IU/mL; Quantiferon NIL 0.05 IU/mL; Quantiferon Plus TB1 minus NIL 0.01 IU/mL (<=0.34); Quantiferon TB Gold Plus Negative (Negative)
== END ==
LOC: REG 11:36
PROVIDERS: ATTENDING PHYSICIAN Internal Medicine Rheumatology
DX: A69.23 Arthritis due to Lyme disease (principal); K75.9 Inflammatory liver disease, unspecified; M19.90 Unspecified osteoarthritis, unspecified site; M25.50 Pain in unspecified joint; Z11.1 Encounter for screening for respiratory tuberculosis; Z51.81 Encounter for therapeutic drug level monitoring
CPT/HCPCS: 36415; 80053; 85025; 85652; 86140; 86480; 86704; 86803; 87340

== ENCOUNTER → 2024-10-16 09:26 | Outpatient (REF) | payer OTHER, SELFPAY ==
[2024-10-16 11:33] LABS: ALT (SGPT) 32 U/L (0-35); AST (SGOT) 26 U/L (14-36); Albumin 4.8 g/dl (3.5-5.0); Alkaline Phosphatase 70 U/L (38-126); Blood Urea Nitrogen 19 mg/dl (7-17); Calcium 9.7 mg/dl (8.4-10.2); Carbon Dioxide 25 mmol/L (22-30); Chloride 110 mmol/L (98-107); Glucose 147 mg/dl (70-99); HDL Cholesterol 51 mg/dl; LDL Cholesterol, Calculated 75 mg/dl; Potassium 4.2 mmol/L (3.5-5.1); Sodium 144 mmol/L (135-145); Total Bilirubin 0.6 mg/dl (0.2-1.3); Total Cholesterol 157 mg/dl (50-199); Total Protein 7.4 g/dl (6.3-8.2); Triglyceride 157 mg/dl (10-149); Very Low Density Lipoprotein 31 mg/dl (0-30); eGFR > 60.00
[2024-10-16 12:01] LABS: Glycohemoglobin (HgbA1c) 6.1 % (4.0-5.6)
== END ==
LOC: REG 09:26
PROVIDERS: ATTENDING PHYSICIAN Internal Medicine Endocrinology, Diabetes & Metabolism; FAMILY PHYSICIAN Family Medicine
DX: E11.9 Type 2 diabetes mellitus without complications (principal)
CPT/HCPCS: 36415; 80053; 80061; 83036

== ENCOUNTER → 2024-12-10 11:25 | Outpatient (REF) | payer OTHER, SELFPAY ==
[2024-12-10 12:21] LABS: % Basophils 0.9 % (0-2); % Eosinophils 4.7 % (0-6); % Immature Granulocytes 0.4 % (0-0.5); % Lymphocytes 39.2 % (20.5-51.1); % Monocytes 8.7 % (1.7-9.3); % Neutrophils 46.1 % (42.2-75.2); Absolute Basophils 0.1 10^3/uL (0-0.2); Absolute Eosinophils 0.3 10^3/uL (0-0.7); Absolute Lymphocytes 2.2 10^3/uL (1.2-3.4); Absolute Monocytes 0.5 10^3/uL (0.1-0.6); Absolute Neutrophils 2.6 10^3/uL (1.4-6.5); Hematocrit 37.5 % (37.0-47.0); Hemoglobin 13.1 g/dL (12.0-16.0); Mean Corp Hgb Conc. 34.9 g/dL (33.0-37.0); Mean Corpuscular Hgb 31.6 pg (27.0-31.0); Mean Corpuscular Volume 90.4 fL (81.0-99.0); Mean Platelet Volume 9.4 fL (7.4-10.4); Nucleated Red Blood Cells % 0 %; Platelet Count 137 10^3/uL (130-400); Red Blood Cell Count 4.15 10^6/uL (4.20-5.40); Red Cell Dist. Width 11.8 % (11.5-14.5); White Blood Cell Count 5.5 10^3/uL (4.8-10.8)
[2024-12-10 14:10] LABS: ALT (SGPT) 43 U/L (0-35); AST (SGOT) 28 U/L (14-36); Albumin 4.6 g/dl (3.5-5.0); Alkaline Phosphatase 58 U/L (38-126); Blood Urea Nitrogen 17 mg/dl (7-17); Calcium 9.4 mg/dl (8.4-10.2); Carbon Dioxide 23 mmol/L (22-30); Chloride 111 mmol/L (98-107); Glucose 158 mg/dl (70-99); HDL Cholesterol 49 mg/dl; LDL Cholesterol, Calculated 67 mg/dl; Potassium 4.4 mmol/L (3.5-5.1); Sodium 143 mmol/L (135-145); Total Bilirubin 0.6 mg/dl (0.2-1.3); Total Cholesterol 140 mg/dl (50-199); Total Protein 7.2 g/dl (6.3-8.2); Triglyceride 121 mg/dl (10-149); Very Low Density Lipoprotein 24 mg/dl (0-30); eGFR > 60.00
[2024-12-10 14:13] LABS: Erythrocyte Sed Rate 9 mm/hour (0-20)
[2024-12-10 15:24] LABS: C-Reactive Protein < 5.00 mg/L (0.0-10.00)
[2024-12-10 15:43] LABS: Vitamin D, 25-OH*** 76.5 ng/mL (30-80)
[2024-12-10 15:56] LABS: TSH 1.18 uIU/ml (0.47-4.68)
== END ==
LOC: REG 11:25
PROVIDERS: ATTENDING PHYSICIAN Family Medicine; REFERRING PHYSICIAN Internal Medicine Endocrinology, Diabetes & Metabolism
DX: E11.65 Type 2 diabetes mellitus with hyperglycemia (principal); K76.0 Fatty (change of) liver, not elsewhere classified; Z13.89 Encounter for screening for other disorder; Z79.899 Other long term (current) drug therapy
CPT/HCPCS: 36415; 80053; 80061; 82306; 84443; 85025; 85652; 86140

== ENCOUNTER → 2025-02-11 07:54 | Outpatient (REF) | payer OTHER, SELFPAY ==
[2025-02-11 10:06] LABS: Glycohemoglobin (HgbA1c) 6.1 % (4.0-5.6)
[2025-02-11 10:23] LABS: ALT (SGPT) 43 U/L (0-35); AST (SGOT) 28 U/L (14-36); Albumin 4.7 g/dl (3.5-5.0); Alkaline Phosphatase 62 U/L (38-126); Blood Urea Nitrogen 25 mg/dl (7-17); Calcium 9.9 mg/dl (8.4-10.2); Carbon Dioxide 24 mmol/L (22-30); Chloride 110 mmol/L (98-107); Glucose 148 mg/dl (70-99); HDL Cholesterol 52 mg/dl; LDL Cholesterol, Calculated 89 mg/dl; Potassium 4.2 mmol/L (3.5-5.1); Sodium 143 mmol/L (135-145); Total Protein 7.5 g/dl (6.3-8.2); Very Low Density Lipoprotein 26 mg/dl (0-30); eGFR > 60.00
== END ==
LOC: REG 07:54
PROVIDERS: ATTENDING PHYSICIAN Internal Medicine Endocrinology, Diabetes & Metabolism; FAMILY PHYSICIAN Family Medicine
DX: E11.9 Type 2 diabetes mellitus without complications (principal)
CPT/HCPCS: 36415; 80053; 80061; 83036